=== PATIENT | female | born 1980 | race Caucasian/White ===

== ENCOUNTER 2022-04-18 09:13 | Inpatient (IN) | payer BC, MEDICAID ==
[~2022-04-18] VITALS: Ht 162.6 cm; Wt 74.8 kg
[2022-04-18] MEDS ORDERED: ADENOSINE 3 MG/ML 2ML VIAL IV ONE ×2 (09:45)
[2022-04-18] MEDS ORDERED: SODIUM CHLORIDE 0.9% 1,000 ML IV ONE (10:00)
[2022-04-18 10:18] LABS: BASOPHILS % 0.9 % (0.0-2.0); EOSINOPHILS % 3.9 % (0.0-5.0); HEMATOCRIT. 39.9 % (36.0-48.0); HEMOGLOBIN. 13.2 g/dL (12.0-16.0); LYMPHOCYTES % 36.3 % (20.0-50.0); MEAN CORPUSCULAR HEMOGLOBIN 28.3 pg (28.0-32.0); MEAN CORPUSCULAR VOLUME 85.3 fL (81.0-99.0); MEAN PLATELET VOLUME 7.4 fl (7.4-10.4); MONOCYTES % 8.6 % (2.0-8.0); NEUTROPHILS % 50.3 % (40.0-76.0); PLATELET 474 x1000/uL (130-400); RED BLOOD CELL COUNT 4.67 mill/uL (4.2-5.4); RED CELL DISTRIBUTION WIDTH 14.6 % (11.6-14.6)
[2022-04-18 10:21] LABS: CHLORIDE 103 mEq/L (98-107)
[2022-04-18] MEDS ORDERED: ACETAMINOPHEN 325MG TABLET PO PRN (14:45)
[2022-04-18] MEDS ORDERED: IPRATROPIUM/ALBUTEROL 0.5-3(2.5)MG/3ML NEB HHN PRN (14:45)
[2022-04-18] MEDS ORDERED: ONDANSETRON HCL 4MG/2ML INJ IV PRN (14:45)
[2022-04-18 15:03] LABS: T4 FREE 1.19 ng/dL (0.76-1.46)
[2022-04-18] MEDS: DILTIAZEM HCL 30MG TABLET PO SCH (18:26)
[2022-04-18 23:50] VITALS: BP 111/64
[2022-04-19] MEDS: DILTIAZEM HCL 30MG TABLET PO SCH ×4 (00:38→17:42)
[2022-04-19 04:00] VITALS: BP 103/76
[2022-04-19 08:00] VITALS: BP 102/60
[2022-04-19 11:38] VITALS: BP 138/95
[2022-04-19 15:10] LABS: CLARITY URINE CLEAR (CLEAR); COLOR URINE YELLOW (YELLOW); KETONES URINE NEGATIVE (NEGATIVE); LEUKOCYTE ESTERASE URINE 1+ (NEGATIVE); NITRITE URINE NEGATIVE (NEGATIVE); OCCULT BLOOD URINE NEGATIVE (NEGATIVE); PH URINE 7.5 (4.5-8.0); PROTEIN URINE NEGATIVE (NEGATIVE); SPECIFIC GRAVITY URINE 1.005 (1.005-1.030); UROBILINOGEN URINE 0.2 E.U./dL (0.2-1.0)
[2022-04-19 15:43] LABS: *AMPHETAMINES SCREEN URINE NEGATIVE (NEGATIVE); *BARBITURATES SCREEN URINE NEGATIVE (NEGATIVE); *BENZODIAZEPINES SCREEN URINE NEGATIVE (NEGATIVE); *COCAINE SCREEN URINE NEGATIVE (NEGATIVE); CANNABINOID URINE SCREEN NEGATIVE (NEGATIVE); METHADONE URINE SCREEN NEGATIVE (NEGATIVE); OPIATES URINE SCREEN NEGATIVE (NEGATIVE); PHENCYCLIDINE URINE SCREEN NEGATIVE (NEGATIVE)
[2022-04-19 16:00] VITALS: BP 122/74
[2022-04-19 16:26] LABS: CREATINE KINASE MB FRACTION 3.3 ng/mL (0.5-3.6)
[2022-04-19 16:56] LABS: BASOPHILS % 1.5 % (0.0-2.0); EOSINOPHILS % 3.6 % (0.0-5.0); HEMATOCRIT. 39.6 % (36.0-48.0); HEMOGLOBIN. 13.4 g/dL (12.0-16.0); LYMPHOCYTES % 27.5 % (20.0-50.0); MEAN CORPUSCULAR HEMOGLOBIN 28.6 pg (28.0-32.0); MEAN CORPUSCULAR VOLUME 84.7 fL (81.0-99.0); MONOCYTES % 10.7 % (2.0-8.0); NEUTROPHILS % 56.7 % (40.0-76.0); PLATELET 375 x1000/uL (130-400); RED BLOOD CELL COUNT 4.68 mill/uL (4.2-5.4); RED CELL DISTRIBUTION WIDTH 14.4 % (11.6-14.6)
[2022-04-19 17:36] LABS: HCG SCREEN NEGATIVE
[2022-04-19 20:00] VITALS: BP 99/68
[2022-04-19] MEDS: ENOXAPARIN 40MG/0.4ML SYR SUBCUT SCH (20:54)
[2022-04-20] VITALS: BP 98/51
[2022-04-20 04:00] VITALS: BP 99/59
[2022-04-20] MEDS: DILTIAZEM HCL 30MG TABLET PO SCH ×2 (05:44)
[2022-04-20 08:00] VITALS: BP 98/62
[2022-04-20 12:00] VITALS: BP 103/57
[2022-04-20 20:00] VITALS: BP 113/74
[2022-04-20] MEDS: ENOXAPARIN 40MG/0.4ML SYR SUBCUT SCH (21:13)
[2022-04-20 23:51] VITALS: BP 92/52
[2022-04-21 04:00] VITALS: BP 101/62
[2022-04-21 08:00] VITALS: BP 105/85
[2022-04-21 12:00] VITALS: BP 98/56
[2022-04-21 15:15] VITALS: BP 108/68
== END 2022-04-21 16:20 | disposition home or self-care (01) | DRG 310 ==
LOC: ER 09:13 → MICUSO 12:59 → EDBEDREQ 13:04 → EDBEDREQTM 13:04 → ER 23:07 → 7WST 04-19 00:15
PROVIDERS: ADMIT Internal Medicine; ATTEND Internal Medicine
DX: I47.1 Supraventricular tachycardia (principal); E66.9 Obesity, unspecified; I10 Essential (primary) hypertension; D72.829 Elevated white blood cell count, unspecified; I95.9 Hypotension, unspecified; Z20.822 Contact with and (suspected) exposure to COVID-19; Z98.891 History of uterine scar from previous surgery; Z68.28 Body mass index [BMI] 28.0-28.9, adult; Z71.3 Dietary counseling and surveillance
CPT/HCPCS: 36415; 71045; 80053; 80061; 80305; 81003; 82553; 83036; 83880; 84439; 84443; 84481; 84484; 84703; 85025; 85379; 87426; 93005; 93306; 99291; J0153; J1650; J7030